=== PATIENT | female | born 2000 | race Caucasian/White ===

== ENCOUNTER 2020-01-17 19:24 | Emergency (ER) | payer OTHER ==
--- NOTE | 2020-01-17 20:44 | ER Document Report ---
ED Medical Screen (RME) - General Chief Complaint: Groin Pain Stated Complaint: PELVIC PAIN Time Seen by Provider: 01/17/20 20:42 Mode of Arrival: Ambulatory Information source: Patient Notes: 19-year-old female presented to ED for complaint of a cyst to her left groin area. She states she was seen at the [facility] a while back and was told that it was a cyst. She states it is been growing and getting more painful and now it is painful to sit down. She states that she cannot get into see her primary doctor due to this pandemic. 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 She is alert oriented respirations regular and unlabored speaking in full sentences. She states she does not smoke drink or use any illicit drugs. She states she does not have any past medical history. She states it is very painful. I did offer Tylenol or Motrin while she waited. She states she is going all day today with this pain and she would rather wait till she talks to somebody about the cyst. I have greeted and performed a rapid initial assessment of this patient. A comprehensive ED assessment and evaluation of the patient, analysis of test results and completion of medical decision making process will be conducted by an additional ED providers. Physical Exam - Vital signs Vitals: Temp Pulse Resp BP Pulse Ox 98.1 F 69 12 132/75 H 100 01/17/20 19:37 01/17/20 19:37 01/17/20 19:37 01/17/20 19:37 01/17/20 19:37 Course - Vital Signs Vital signs: Temp Pulse Resp BP Pulse Ox 98.1 F 69 12 132/75 H 100 01/17/20 19:37 01/17/20 19:37 01/17/20 19:37 01/17/20 19:37 01/17/20 19:37
--- NOTE | 2020-01-17 23:44 | ER Document Report ---
HPI - HPI Patient complains to provider of: Swelling to left labia Time Seen by Provider: 01/17/20 20:42 Onset: Other - 1 month Onset/Duration: Worse Quality of pain: Sharp Pain Level: 2 Context: Patient complains of tenderness to the left labia with swelling. Patient states symptoms started about a month ago but recently worsened. Patient does report some mild vaginal discharge. Patient states she has been treating herself for a yeast infection. Patient denies any fever or urinary symptoms. Associated Symptoms: Other - Labia tenderness. denies: Fever Exacerbated by: Movement Relieved by: Denies Similar symptoms previously: No Recently seen / treated by doctor: No - ROS ROS below otherwise negative: Yes Systems Reviewed and Negative: Yes All other systems reviewed and negative - CONSTITUTIONAL Constitutional: DENIES: Fever - NEURO Neurology: DENIES: Weakness - GASTROINTESTINAL Gastrointestinal: DENIES: Nausea - URINARY Urinary: DENIES: Dysuria, Urgency, Frequency - REPRODUCTIVE Reproductive: REPORTS: Abnormal bleeding / discharge - DERM Skin Color: Normal Skin Problems: None Past Medical History - General Information source: Patient - Social History Smoking Status: Never Smoker Frequency of alcohol use: None Drug Abuse: None Occupation: Active duty Family History: Reviewed & Not Pertinent Patient has homicidal ideation: No - Medical History Medical History: Negative Surgical Hx: Negative Vertical Provider Document - CONSTITUTIONAL Agree With Documented VS: Yes Exam Limitations: No Limitations General Appearance: WD/WN, No Apparent Distress - HEENT HEENT: Atraumatic, Normocephalic - NECK Neck: Normal Inspection - RESPIRATORY Respiratory: Breath Sounds Normal, No Respiratory Distress - CARDIOVASCULAR Cardiovascular: Regular Rate, Regular Rhythm - GI/ABDOMEN Gastrointestinal: Abdomen Soft, Abdomen Non-Tender, No Organomegaly, Normal Bowel Sounds - REPRODUCTIVE Female Genitalia: Abnormal Inspection - Patient with 1 cm palpable swelling to the left Bartholin gland, minimal white vaginal discharge, no cervical motion tenderness. negative: CMT - BACK Back: Normal Inspection. negative: CVA Tenderness-Right, CVA Tenderness-Left - MUSCULOSKELETAL/EXTREMETIES Musculoskeletal/Extremeties: AKIRA BENDER - NEURO Level of Consciousness: Awake, Alert, Appropriate Motor/Sensory: No Motor Deficit - DERM Integumentary: Warm, Dry, Rash - Inflamed papular lesions to perineum few scattered pustular lesions Course - Re-evaluation Re-evalutation: 01/18/20 01:00 Patient with what appears to be a Bartholin gland abscess versus cyst. Patient with minimal swelling not requiring incision and drainage at this time, patient encouraged to take oral antibiotics and encouraged to return if she has any increase in pain or swelling. Patient denies any concern about STI. 01/18/20 04:20 Reviewed results of patient use tests, prescription for azithromycin sent to patient's pharmacy. Will attempt to call patient in the morning to advise her of results. - Vital Signs Vital signs: Temp Pulse Resp BP Pulse Ox 98.1 F 69 12 132/75 H 100 01/17/20 20:38 01/17/20 19:37 01/17/20 19:37 01/17/20 19:37 01/17/20 19:37 - Laboratory Laboratory results interpreted by me: 01/18/20 04:19 Labs- All tests 24 hr 01/17/20 01/18/20 01/18/20 23:52 00:07 00:07 Urine Color STRAW Urine Appearance CLEAR Urine pH 7.0 Ur Specific [place] 1.011 Urine Protein NEGATIVE Urine Glucose (UA) NEGATIVE Urine Ketones NEGATIVE Urine Blood NEGATIVE Urine Nitrite (Reflex) NEGATIVE Urine Bilirubin NEGATIVE Urine Urobilinogen NEGATIVE Leukocyte Esterase Rfl SMALL H Urine RBC (Auto) 1 Urine WBC (Reflex) 5 Squamous Epi Cells Auto 1 Urine Mucus (Auto) RARE Urine Ascorbic Acid NEGATIVE Urine HCG, Qual NEGATIVE Trichomonas (Wet Prep) COULD NOT PERFORM Vaginal WBC FEW WBCS SEEN Vaginal RBC RARE RBCS SEEN Vaginal Yeast NO YEAST SEEN Chlamydia DNA (PCR) DETECTED H N.gonorrhoeae DNA (PCR) NOT DETECTED Discharge - Discharge Clinical Impression: Bartholin's gland abscess, Folliculitis, Chlamydia Condition: Stable Disposition: HOME, SELF-CARE Instructions: Bartholin Gland Cyst or Abscess ([facility]), Folliculitis ([facility]), Oral Narcotic Medication ([facility]), Trimethoprim-Sulfa ([facility]), Warm Packs ([facility]) Additional Instructions: Return immediately for any new or worsening symptoms Followup with your primary care provider, call tomorrow to make a followup appointment Prescriptions: Azithromycin 1,000 mg PO ONCE #2 tablet Sulfamethoxazole/Trimethoprim [Bactrim Ds Tablet] 1 each PO BID #14 tablet Cephalexin Monohydrate [Keflex 500 mg Capsule] 500 mg PO Q6H 5 Days #20 capsule Naproxen [Naprosyn 250 Nmg Tablet] 1 tab PO BID #14 tablet Referrals: [facility] [Provider Group] - Follow up tomorrow
[2020-01-18 00:05] LABS: APPEARANCE,URINE CLEAR; BILIRUBIN,URINE NEGATIVE (NEGATIVE); COLOR,URINE STRAW; GLUCOSE, URINE NEGATIVE (NEGATIVE); KETONES,URINE NEGATIVE (NEGATIVE); PROTEIN,URINE NEGATIVE (NEGATIVE); URINE SPECIFIC GRAVITY 1.011; UROBILINOGEN,URINE NEGATIVE mg/dL (<2.0)
[2020-01-18] MEDS ORDERED: SULFAMETHOXAZOLE/TRIMETHOPRIM 800-160 MG TABLET PO ONE (00:11)
[2020-01-18] MEDS ORDERED: HYDROCODONE/ACETAMINOPHEN 5-325 MG TABLET PO ONE (00:11)
[2020-01-18 00:33] LABS: RBCS (WET MOUNT) RARE RBCS SEEN; T.VAGINALIS (WET MOUNT) COULD NOT PERFORM; WBCS (WET MOUNT) FEW WBCS SEEN; YEAST (WET MOUNT) NO YEAST SEEN
[2020-01-18] MEDS ORDERED: HYDROCODONE/ACETAMINOPHEN 5-325 MG (6 TAB/ER DISP) PO PRN (01:02)
[2020-01-18] MEDS ORDERED: IBUPROFEN 800 MG TABLET PO ONE (01:07)
[2020-01-18] MEDS ORDERED: CEPHALEXIN 500 MG CAPSULE PO ONE (01:07)
[2020-01-18 01:16] VITALS: BP 126/73
[2020-01-18 01:46] LABS: CHLAM PCR DETECTED (NOT DETECT)
== END 2020-01-18 01:20 | disposition home or self-care (01) ==
LOC: ER 19:24
DX: N75.1 Abscess of Bartholin's gland (principal); L73.9 Follicular disorder, unspecified; A74.9 Chlamydial infection, unspecified
CPT/HCPCS: 81001; 81025; 87210; 87491; 87591; 99284

== ENCOUNTER 2020-02-07 12:17 | Emergency (ER) | payer OTHER ==
--- NOTE | 2020-02-07 12:44 | ER Document Report ---
HPI - HPI Time Seen by Provider: 02/07/20 12:39 Pain Level: Denies Context: Patient is a 19-year-old female who presents to the emergency department with a chief complaint of vaginal discharge and irritation. Patient was seen here on January 16 and was diagnosed with a chlamydial infection. She states that she was treated, but her partner was not treated and she continued to have sex with them. Patient reports itchiness to her vaginal area. - ROS Systems Reviewed and Negative: Yes All other systems reviewed and negative - CONSTITUTIONAL Constitutional: DENIES: Fever, Chills - REPRODUCTIVE LMP: 01/11 Reproductive: REPORTS: :, Abnormal bleeding / discharge - Vaginal discharge and itching - DERM Skin Color: Normal Skin Problems: None Past Medical History - General Information source: Patient - Social History Smoking Status: Never Smoker Chew tobacco use (# tins/day): No Frequency of alcohol use: None Drug Abuse: None Family History: Reviewed & Not Pertinent Patient has homicidal ideation: No Vertical Provider Document - CONSTITUTIONAL Agree With Documented VS: Yes Exam Limitations: No Limitations General Appearance: No Apparent Distress - HEENT HEENT: Atraumatic, Normocephalic - NECK Neck: Normal Inspection - RESPIRATORY Respiratory: No Respiratory Distress - CARDIOVASCULAR Cardiovascular: Regular Rate, Regular Rhythm Pulses: Normal: Radial - GI/ABDOMEN Gastrointestinal: Abdomen Soft, Abdomen Tender - Mid lower - REPRODUCTIVE Female Genitalia: Abnormal Inspection - White/yellow discharge noted. negative: CMT, Adnexal Pain-Right, Adnexal Pain-Left - BACK Back: Normal Inspection. negative: CVA Tenderness-Right, CVA Tenderness-Left - NEURO Level of Consciousness: Awake, Alert, Appropriate Motor/Sensory: No Motor Deficit, No Sensory Deficit - DERM Integumentary: Warm, Dry, No Rash Course - Re-evaluation Re-evalutation: 02/07/20 14:17 Pelvic done by JENNIFER Babcock under my supervision. White/yellow discharge noted. Wet mount and gonorrhea and chlamydia will be sent. 02/07/20 15:00 Patient has 4+ epithelial cells and 4+ bacteria noted on her wet mount. She also has 4+ WBCs. Exam is consistent with bacterial vaginosis. We will start her on Flagyl vaginally. We will empirically treat her for gonorrhea and c hlamydia. I have a low suspicion for pelvic inflammatory disease. Follow-up precautions were given. Verbal discharge instructions were given to the patient. They verbalized understanding. They are stable for discharge. - Vital Signs Vital signs: Temp Pulse Resp BP Pulse Ox 98.4 F 73 16 127/80 H 100 02/07/20 12:39 02/07/20 12:23 02/07/20 12:23 02/07/20 12:23 02/07/20 12:23 Discharge - Discharge Clinical Impression: Vaginal itching Condition: Stable Disposition: HOME, SELF-CARE Additional Instructions: You have an overgrowth of natural vaginal bacteria, called bacterial vaginosis. You are being treated with an antibiotic called metronidazole. You were also treated for gonorrhea and chlamydia. Do not have sex for at least a week. Do not drink alcohol while taking this medication. Complete all of the antibiotic even if your symptoms have resolved. Return for abdominal pain, vomiting, fever of greater than 101F, or any other symptoms that are worrisome to you. Please follow-up with your [facility] or primary care doctor as needed. Prescriptions: Metronidazole [Metrogel 0.75% Vaginal Gel] 5 applic VG QHS #1 tube Forms: Return to Work
[2020-02-07 13:09] LABS: APPEARANCE,URINE SLIGHTLY-CLOUDY; BILIRUBIN,URINE NEGATIVE (NEGATIVE); COLOR,URINE YELLOW; GLUCOSE, URINE NEGATIVE (NEGATIVE); KETONES,URINE NEGATIVE (NEGATIVE); PROTEIN,URINE NEGATIVE (NEGATIVE); UROBILINOGEN,URINE NEGATIVE mg/dL (<2.0)
[2020-02-07 14:26] LABS: T.VAGINALIS (WET MOUNT) NO TRICHOMONAS SEEN; YEAST (WET MOUNT) NO YEAST SEEN
[2020-02-07 14:27] LABS: BACTERIA (WET MOUNT) 4+ BACTERIA SEEN; EPITHELIALS (WET MOUNT) 4+ EPITHELIALS SEEN; RBCS (WET MOUNT) FEW RBCS SEEN; WBCS (WET MOUNT) 4+ WBCS SEEN
[2020-02-07] MEDS ORDERED: CEFTRIAXONE INJ 250 MG VIAL IM ONE (14:43)
[2020-02-07] MEDS ORDERED: AZITHROMYCIN 250 MG TABLET PO ONE (14:43)
[2020-02-07 15:04] VITALS: BP 129/69
[2020-02-07 15:57] LABS: CHLAM PCR NOT DETECTED (NOT DETECT)
== END 2020-02-07 15:04 | disposition home or self-care (01) ==
LOC: ER 12:17
DX: L29.9 Pruritus, unspecified (principal); N89.8 Other specified noninflammatory disorders of vagina; Z20.2 Contact with and (suspected) exposure to infections with a predominantly sexual mode of transmission
CPT/HCPCS: 81001; 87210; 87491; 87591; 99283